=== PATIENT | female | born 1950 | race Caucasian/White ===

== ENCOUNTER 2018-02-02 10:05 | Emergency (ER) | payer OTHER ==
[~2018-02-02] VITALS: Ht 162.6 cm; Wt 88.5 kg
[~2018-02-02 10:05] MED LIST: ALDACTONE25 MG PO; AVAPRO150 MG PO; Aldactone 25 MG TABLET PO; Avapro PO; CARDURA8 MG PO; CARdura PO; CLARITIN PO; DALMANE30 MG PO; DOXYCYCLINE HY100 MG PO; FLEXERIL5 MG PO; FLURAZEPAM PO; HYDRODIURIL12.5 MG PO; IRON1TAB4 PO; LASIX80 MG PO; NEURONTIN PO; NEURONTIN600 MG PO; OXYC1TAB9 PO; PROTONIX40 MG PO; SYNTHROID100 MCG PO; Synthroid PO; TRAMADOL HCL-AP1 TAB PO; XANAX2 MG PO; ZANTAC 2525 MG PO; ZOLOFT 100 MG PO; ZOLOFT100 MG PO
== END 2018-02-02 14:32 | disposition home or self-care (01) ==
LOC: ER 10:05
DX: R42 Dizziness and giddiness (principal)

== ENCOUNTER 2019-01-27 13:30 | Emergency (ER) | payer OTHER ==
[~2019-01-27] VITALS: Ht 152.4 cm; Wt 89.8 kg
== END 2019-01-27 18:03 | disposition home or self-care (01) ==
LOC: ER 13:30
DX: J45.909 Unspecified asthma, uncomplicated (principal); K62.5 Hemorrhage of anus and rectum

== ENCOUNTER 2019-01-30 02:33 | Emergency (ER) | payer OTHER ==
[~2019-01-30] VITALS: Ht 157.5 cm; Wt 99.8 kg
== END 2019-01-30 14:22 | disposition home or self-care (01) ==
LOC: ER 02:33
DX: J09.X2 Influenza due to identified novel influenza A virus with other respiratory manifestations (principal); J45.901 Unspecified asthma with (acute) exacerbation

== ENCOUNTER 2022-06-07 08:00 | Emergency (ER) | payer OTHER ==
[~2022-06-07] VITALS: Ht 162.6 cm; Wt 95.3 kg
[2022-06-07] MEDS ORDERED: XIGDUO XR 10 M1 EAC1 (08:14)
== END 2022-06-07 09:44 | disposition home or self-care (01) ==
LOC: ER 08:00
DX: S60.221A Contusion of right hand, initial encounter (principal); S80.01XA Contusion of right knee, initial encounter; W18.39XA Other fall on same level, initial encounter; Y93.89 Activity, other specified; Y92.013 Bedroom of single-family (private) house as the place of occurrence of the external cause; Y99.9 Unspecified external cause status; Z88.2 Allergy status to sulfonamides

== ENCOUNTER 2022-08-17 08:52 | Outpatient (CLI) | payer OTHER ==
[~2022-08-17 08:52] MED LIST changes: +XIGDUO XR 10 M1 EAC1
== END 2022-08-17 08:55 | disposition home or self-care (01) ==
LOC: TOM 08:52
PROVIDERS: ATTEND Internal Medicine Gastroenterology
DX: J44.9 Chronic obstructive pulmonary disease, unspecified (principal); R93.3 Abnormal findings on diagnostic imaging of other parts of digestive tract

== ENCOUNTER → 2023-03-20 | Emergency (ER) | payer OTHER ==
[~2023-03-20] VITALS: Ht 162.6 cm; Wt 101.6 kg
[~2023-03-20] MED LIST changes: +ALLEGRA ALLERGY60 MG; +BENADRYL ALLERG25 MG
[2023-03-20 17:16] LABS: ABG PH 7.369 (7.35-7.45); ABG PO2 85.3 mmHg (80-100); ABG pCO2 40.2 mmHg (35-45); BASE EXCESS -2.4 mmol/l; BICARBONATE 22.7 mmol/l (23-25); Tco2 23.9 mmol/l
[2023-03-20 17:32] LABS: HEMOGLOBIN 10.8 g/dL (12.0-15.00); MEAN CELL VOLUME 97.4 fL (80.00-100.00); MEAN CORPUSCULAR HGB CONC 31.9 g/dl (32.0-36.0); PLATELET COUNT 179 K/uL (150-450); RED BLOOD COUNT 3.49 M/uL (4.00-6.00); RED CELL DISTRIBUTION WIDTH 15.6 % (11.5-14.5)
[2023-03-20 17:34] LABS: o2 21 %; puncture site RADIAL RIGHT
[2023-03-20 17:35] LABS: allen test SATISFACTORY
[2023-03-20 17:56] LABS: INR 1.04; PARTIAL THROMBOPLASTIN TIME 24.8 SECONDS (22.0-34.0); PROTHROMBIN TIME 10.9 SECONDS (9.0-11.5)
[2023-03-20 18:00] LABS: ALBUMIN 3.6 gm/dL (3.4-5.0); BILIRUBIN TOTAL 0.65 mg/dL (0.3-1.2); CALCIUM 9.4 mg/dL (8.5-10.1); CREATININE SERUM 1.04 mg/dL (0.55-1.02); GFR 52.39; GLOBULINA 3.6 G/DL (2.4-3.5); POTASSIUM 4.27 mEq/L (3.5-5.1); TOTAL PROTEIN 7.2 gm/dL (6.4-8.2)
[2023-03-20 18:26] LABS: URINE APPEARANCE Clear; URINE BACTERIA 113.3 uL (0.0-1933); URINE BILIRRUBIN Negative (NEGATIVE); URINE BLOOD Small; URINE COLOR Yellow; URINE EPITHELIAL CELLS 13.6 uL (0.0-38.8); URINE GLUCOSE Negative (NEGATIVE); URINE LEUKOCYTE Small; URINE NITRATE Negative; URINE PROTEIN Trace (NEGATIVE); URINE RBC 65.1 uL (0.0-20.8); URINE UROBILINOGEN 0.2 E.U./dl
== END | disposition left against medical advice (07) ==
LOC: ER 15:50
PROVIDERS: General Practice
DX: R06.02 Shortness of breath (principal); R53.83 Other fatigue; I10 Essential (primary) hypertension; E11.9 Type 2 diabetes mellitus without complications
CPT/HCPCS: 36415; 71046; 71250; 82803; 96365; 99284; J1940